=== PATIENT | male | born 1990 | race Caucasian/White ===

== ENCOUNTER 2022-07-26 07:25 | Inpatient (IN) | payer SELFPAY ==
[2022-07-26] VITALS (23 sets, daily range): BP systolic 119–149; BP diastolic 55–90; PULSE 74–143; RESP 15–20; TEMP 36.1–37.4; O2SAT 96–99; BMI 31.4; BMI 31.8
[2022-07-26 08:20] LABS: MANUAL DIFF FLAG NO
[2022-07-26 08:23] LABS: Basophils Absolute Auto 0.1 X10*3/uL (0.0-0.2); Basophils Percent Auto 0.9 % (0-2); Eosinophils Absolute Auto 0.1 X10*3/uL (0.0-0.4); Eosinophils Percent Auto 0.9 % (0-4); Hematocrit 32.9 % (42.0-52.0); Hemoglobin 11.1 g/dl (14.0-18.0); Imm Gran Abs Auto 0.06 X10*3/uL (0.00-0.03); Imm Gran Pct Auto 0.6 % (0.0-0.4); Lymphocytes Absolute Auto 1.3 X10*3/uL (1.2-4.9); Lymphocytes Percent Auto 13.1 % (20-40); Mean Corpuscular HGB Conc 33.7 g/dl (31.0-36.0); Mean Corpuscular Volume 100.9 fL (80.0-98.0); Monocytes Absolute Auto 0.9 X10*3/uL (0.1-1.2); Monocytes Percent Auto 8.9 % (2-11); Neutrophils Absolute Auto 7.5 x10*3/uL (2.0-8.3); Neutrophils Percent Auto 75.6 % (45-73); Platelet Count 191 X10*3/uL (160-400); Red Blood Count 3.26 X10*6/uL (4.60-5.80); Red Cell Distribution Width 14.5 % (11.0-16.0); White Blood Count 9.9 X10*3/uL (4.8-10.8)
--- NOTE | 2022-07-26 08:35 | ECG_ITS ---
Test Reason : TACHY CARDIA Blood Pressure : / mmHG Vent. Rate : 108 BPM Atrial Rate : 108 BPM P-R Int : 152 ms QRS Dur : 066 ms QT Int : 352 ms P-R-T Axes : 000 141 156 degrees QTc Int : 471 ms Sinus tachycardia Right axis deviation Low voltage QRS Nonspecific ST and T wave abnormality Abnormal ECG When compared with ECG of 26-JUL-2022 07:51, Nonspecific T wave abnormality, worse in Inferior leads Referred By: Luis Butt Electronically Signed By:KEKE BELL MD
[2022-07-26 08:36] LABS: Alanine Aminotransferase 48 U/L (0-40); Albumin Level 3.5 g/dL (3.5-5.0); Alkaline Phosphatase 81 U/L (39-117); Anion Gap 18 (12-20); Aspartate Amino Transferase 100 U/L (5-37); Bilirubin Total 3.6 mg/dL (0.0-1.0); Blood Urea Nitrogen 16 mg/dL (9-16); Calcium 9.1 mg/dL (8.4-10.2); Carbon Dioxide 23 mmol/L (22-29); Chloride 101 mmol/L (96-108); Creatinine Clr Calc Pharmacy 157.9; Estimated Glomerular Filt Rate > 60; Ethanol < 10 mg/dL; Glucose Random 100 mg/dL (60-115); Lipase 42 U/L (8-78); Potassium 3.7 mmol/L (3.3-5.1); Sodium 138 mmol/L (135-145); Total Protein 6.6 g/dL (6.5-8.0)
[2022-07-26 08:41] LABS: COVID-19 Test Negative (Negative); IDNOW Serial# 55D5AD1C
--- NOTE | 2022-07-26 08:47 | ED.NAVMDI ---
HPI - Nausea/Vomiting/Diarrhea General Chief complaint: Nausea/Vomiting/Diarrhea Stated complaint: Vomiting/Blood in diarrhea Time Seen by Provider: 07/26/22 08:34 Source: patient and family (Spouse) Mode of arrival: ambulatory Limitations: no limitations History of Present Illness HPI Narrative: 31-year-old male came in for evaluation of nausea and vomiting with bloody diarrhea. 31-year-old male history of alcohol abuse on a daily basis last drink was 2 days ago patient do not feel withdrawing or had history of withdrawal symptoms in the past. Patient noticed he has been passing significant amount of bloody diarrhea since this morning, patient also been feeling nauseous and vomiting blood. Patient decline abdominal pain, no CP, no SOB, not feeling dizzy. Patient declined history of taking anticoagulation or any other medical history. Related Data Home Medications Medication Instructions Recorded Confirmed No Known Home Meds 07/26/22 07/26/22 Allergies Allergy/AdvReac Type Severity Reaction Status Date / Time amoxicillin [AMOXICILLIN] Allergy Unknown HIVES Unverified 07/04/20 15:55 Review of Systems Review of Systems: All other systems are reviewed and are negative Constitutional: Reports as per HPI and Reports no additional constitutional complaints Eyes: Reports as per HPI and Reports no additional eye complaints Reports system reviewed and no additional complaints, except as documented Cardiovascular: Reports as per HPI and Reports no additional cardiovascular complaints Respiratory: Reports as per HPI and Reports no additional respiratory complaints Gastrointestinal: Reports as per HPI and Reports no additional gastrointestinal complaints Genitourinary: Reports no additional female genitourinary complaints Musculoskeletal: Reports no additional musculoskeletal complaints Skin/Breast: Reports system reviewed and no additional complaints, except as docu Psychiatric: Reports no additional psychiatric complaints Endocrine: Reports no additional endocrine complaints Hematologic/Lymphatic: Reports no additional hematologic/lymphatic complaints Allergic/Immunologic: Reports no additional allergic/immunologic complaints Reports system reviewed and no additional complaints, except as documented and Reports Abnormal speech present [facility] Social History Social History (Updated 07/26/22 @ 16:12 by Annabella Leggett MD) Alcohol intake: current Alcohol intake frequency: 0-2 drinks per day Alcohol type: hard liquor Patient Tobacco Use Status: Never used Tobacco Smoked in Last 30 Days: No Substance Use Type: Marijuana Substance Use Frequency: Daily Advance Directives: No Advance Directives Information Provided: Yes Physical Exam Vital Signs: Vital Signs: Last Vital Signs Temp 98.9 F 07/26/22 13:21 Pulse 115 H 07/26/22 13:21 Resp 20 07/26/22 13:21 BP 124/67 07/26/22 13:21 Pulse Ox 96 07/26/22 13:21 O2 Del Method 07/26/22 13:21 BMI result Body Mass Index 31.4 Vital signs have been reviewed as appeared to be correct. Blood pressure normal. Heart rate elevated. Respiration rate normal. Temperature normal. Oxygen saturation normal. Appearance: Alert. Oriented X3. No acute distress. Head: Normal external exam. Normocephalic. Atraumatic. No Gallegos signs noted. No raccoon eyes noted Eyes: PERRLA. EOMI. Conjunctiva and sclera normal. Eyelids normal. ENT: TM's Normal. Pharynx normal. Uvula midline. Moist mucous membranes. No trismus noted. No drooling noted. No muffled voice noted. Neck: Normal inspection. Neck supple. FROM. No adenopathy. Thyroid Normal. No meningeal signs. No neck mass noted. CVS: Normal heart rate and rhythm. Heart sound normal. No murmurs noted. Pulses normal throughout. Respiratory: No respiratory distress. Painless inspiration. Breath sounds normal. No wheezes/rales/rhonchi noted. Chest nontender. No accessory muscle usage noted or decreased air movement noted. Abdomen: Soft and nontender. Bowel sounds normal in all 4 quadrants. No distention noted. No organomegaly noted. No visible injury noted. Rectal exam: Hematochezia, no visible external hemorrhoid, no palpable internal hemorrhoids. Back: No CVA tenderness. Full range of motion noted. Skin: Skin warm and dry. Normal skin color. Normal skin turgor. No rashes/lesions/lacerations noted. Extremities: No lower extremity edema. Extremities exhibit normal range of motion. Extremities nontender. Neuro: Oriented X 3. Cranial nerve exam: II-XII are grossly intact No motor deficit. No sensory deficit. Reflexes normal. Course Course Course Narrative: 31-year-old male history of alcohol abuse presented with hematochezia and upper GI bleed, patient currently not vomiting, had a couple bloody bowel movement while in the emergency department. Patient was tachycardic which improved with fluid now, serial CBC showing hematocrit to decrease from 33 to 28 which could be also contributed to hemodilution. Admit and continue with hemodynamic support and monitoring. Consult to Dr. Howard. Patient is a chronic alcohol abuser showing coagulopathy start the patient on vitamin K. Type and screen if needed for emergency transfusion. Dr. Carson was consulted on the case patient is hemodynamically stable at this point Patient is a daily alcohol abuser CIWA score is 3 no need for treatment at the moment. Reevaluation(s) Reevaluation #1: Dr. Shelley at the bedside decided to take the patient for emergent upper endoscopy, patient still normotensive but tachycardic, to IV access was established, vitamin K for coagulopathy. Time: 16:18 MDM - Nausea/Vomiting/Diarrhea Medical Records Attestation: I reviewed the patient's medical records. Lab Data Attestation: I reviewed the patient's lab results. Result diagrams: 07/26/22 14:36 07/26/22 08:15 Labs: Lab Results 07/26/22 07/26/22 07/26/22 Range/Units 08:15 08:15 08:15 WBC 9.9 (4.8-10.8) X10*3/uL RBC 3.26 L (4.60-5.80) X10*6/uL Hgb 11.1 L (14.0-18.0) g/dl Hct 32.9 L (42.0-52.0) % MCV 100.9 H (80.0-98.0) fL MCH 34.0 H (27.0-33.0) pg MCHC 33.7 (31.0-36.0) g/dl RDW 14.5 (11.0-16.0) % Plt Count 191 (160-400) X10*3/uL MPV 10.0 (9.4-12.4) fL Immature Gran % (Auto) 0.6 H (0.0-0.4) % Neut % (Auto) 75.6 H (45-73) % Lymph % (Auto) 13.1 L (20-40) % Frio % (Auto) 8.9 (2-11) % Eos % (Auto) 0.9 (0-4) % Baso % (Auto) 0.9 (0-2) % Lymph # (Auto) 1.3 (1.2-4.9) X10*3/uL Frio # (Auto) 0.9 (0.1-1.2) X10*3/uL Eos # (Auto) 0.1 (0.0-0.4) X10*3/uL Baso # (Auto) 0.1 (0.0-0.2) X10*3/uL Abs Immat Gran (auto) 0.06 H (0.00-0.03) X10*3/uL Absolute Neuts (auto) 7.5 (2.0-8.3) x10*3/uL Absolute Nucleated RBC 0.000 (0.0-0.012) X10*3/uL Nucleated RBC % (auto) 0.0 (0.0-0.2) /100WBC Sodium 138 (135-145) mmol/L Potassium 3.7 (3.3-5.1) mmol/L Chloride 101 (96-108) mmol/L Carbon Dioxide 23 (22-29) mmol/L Anion Gap 18 (12-20) BUN 16 (9-16) mg/dL Creatinine 0.67 (0.5-1.4) mg/dL Estim Creat Clear Calc 157.9 Estimated GFR > 60 Random Glucose 100 (60-115) mg/dL Calcium 9.1 (8.4-10.2) mg/dL Total Bilirubin 3.6 H (0.0-1.0) mg/dL Direct Bilirubin 2.0 H (0.0-0.5) mg/dL AST 100 H (5-37) U/L ALT 48 H (0-40) U/L Alkaline Phosphatase 81 (39-117) U/L Total Protein 6.6 (6.5-8.0) g/dL Albumin 3.5 (3.5-5.0) g/dL Lipase 42 (8-78) U/L Stool Occult Blood (NEGATIVE) Ethyl Alcohol < 10 mg/dL COVID-19 (GARRETT) Negative (Negative) COVID-19 Clin Com See Note Blood Type Antibody Screen Crossmatch 07/26/22 07/26/22 07/26/22 Range/Units 08:44 08:56 10:06 WBC 10.4 12.2 H (4.8-10.8) X10*3/uL RBC 3.10 L 2.76 L (4.60-5.80) X10*6/uL Hgb 10.7 L 9.4 L (14.0-18.0) g/dl Hct 31.7 L 27.8 L (42.0-52.0) % MCV 102.3 H 100.7 H (80.0-98.0) fL MCH 34.5 H 34.1 H (27.0-33.0) pg MCHC 33.8 33.8 (31.0-36.0) g/dl RDW 14.4 14.5 (11.0-16.0) % Plt Count 183 181 (160-400) X10*3/uL MPV 10.2 9.9 (9.4-12.4) fL Immature Gran % (Auto) 0.7 H (0.0-0.4) % Neut % (Auto) 83.7 H (45-73) % Lymph % (Auto) 6.2 L (20-40) % Frio % (Auto) 8.5 (2-11) % Eos % (Auto) 0.2 (0-4) % Baso % (Auto) 0.7 (0-2) % Lymph # (Auto) 0.8 L (1.2-4.9) X10*3/uL Frio # (Auto) 1.0 (0.1-1.2) X10*3/uL Eos # (Auto) 0.0 (0.0-0.4) X10*3/uL Baso # (Auto) 0.1 (0.0-0.2) X10*3/uL Abs Immat Gran (auto) 0.08 H (0.00-0.03) X10*3/uL Absolute Neuts (auto) 10.2 H (2.0-8.3) x10*3/uL Absolute Nucleated RBC 0.000 0.000 (0.0-0.012) X10*3/uL Nucleated RBC % (auto) 0.0 0.0 (0.0-0.2) /100WBC Sodium (135-145) mmol/L Potassium (3.3-5.1) mmol/L Chloride (96-108) mmol/L Carbon Dioxide (22-29) mmol/L Anion Gap (12-20) BUN (9-16) mg/dL Creatinine (0.5-1.4) mg/dL Estim Creat Clear Calc Estimated GFR Random Glucose (60-115) mg/dL Calcium (8.4-10.2) mg/dL Total Bilirubin (0.0-1.0) mg/dL Direct Bilirubin (0.0-0.5) mg/dL AST (5-37) U/L ALT (0-40) U/L Alkaline Phosphatase (39-117) U/L Total Protein (6.5-8.0) g/dL Albumin (3.5-5.0) g/dL Lipase (8-78) U/L Stool Occult Blood POSITIVE (NEGATIVE) Ethyl Alcohol mg/dL COVID-19 ([facility]RETT) (Negative) COVID-19 Clin Com Blood Type Antibody Screen Crossmatch 07/26/22 Range/Units 10:06 WBC (4.8-10.8) X10*3/uL RBC (4.60-5.80) X10*6/uL Hgb (14.0-18.0) g/dl Hct (42.0-52.0) % MCV (80.0-98.0) fL MCH (27.0-33.0) pg MCHC (31.0-36.0) g/dl RDW (11.0-16.0) % Plt Count (160-400) X10*3/uL MPV (9.4-12.4) fL Immature Gran % (Auto) (0.0-0.4) % Neut % (Auto) (45-73) % Lymph % (Auto) (20-40) % Frio % (Auto) (2-11) % Eos % (Auto) (0-4) % Baso % (Auto) (0-2) % Lymph # (Auto) (1.2-4.9) X10*3/uL Frio # (Auto) (0.1-1.2) X10*3/uL Eos # (Auto) (0.0-0.4) X10*3/uL Baso # (Auto) (0.0-0.2) X10*3/uL Abs Immat Gran (auto) (0.00-0.03) X10*3/uL Absolute Neuts (auto) (2.0-8.3) x10*3/uL Absolute Nucleated RBC (0.0-0.012) X10*3/uL Nucleated RBC % (auto) (0.0-0.2) /100WBC Sodium (135-145) mmol/L Potassium (3.3-5.1) mmol/L Chloride (96-108) mmol/L Carbon Dioxide (22-29) mmol/L Anion Gap (12-20) BUN (9-16) mg/dL Creatinine (0.5-1.4) mg/dL Estim Creat Clear Calc Estimated GFR Random Glucose (60-115) mg/dL Calcium (8.4-10.2) mg/dL Total Bilirubin (0.0-1.0) mg/dL Direct Bilirubin (0.0-0.5) mg/dL AST (5-37) U/L ALT (0-40) U/L Alkaline Phosphatase (39-117) U/L Total Protein (6.5-8.0) g/dL Albumin (3.5-5.0) g/dL Lipase (8-78) U/L Stool Occult Blood (NEGATIVE) Ethyl Alcohol mg/dL COVID-19 ([facility]RETT) (Negative) COVID-19 Clin Com Blood Type O Negative Antibody Screen NEGATIVE Crossmatch See Detail Imaging Data CT abdomen pelvis: Attestation: I personally reviewed and interpreted this imaging study as follows: Radiologist's impression: 1. Mild circumferential wall thickening and adjacent stranding at the proximal portion of the duodenum, which could represent acute duodenitis. No pneumatosis, evidence of perforation, or abscess formation. Sigmoid diverticulosis without evidence of acute diverticulitis. No small or large bowel obstruction. ? 2. Partially distended gallbladder with circumferential wall thickening. No associated inflammatory change or radiopaque gallstone. No intrahepatic or extrahepatic biliary ductal dilatation. ? 3. Hepatic steatosis. No parenchymal lesion.? ? Critical Care Time Critical Care Time Critical Care Time: Yes Total Critical Care Time: 60 Attestation: I spent 60 minutes providing critical care service to the patient, this including time spent at the bedside to evaluate the patient, reassess the patient, monitoring vital signs, review labs, and radiographic studies, counseling the patient/family, discussing the case with consultants, disposition the patient. Discharge Plan Discharge Clinical Impression: Acute GI bleeding, Hematochezia, Alcohol abuse Patient Disposition: Admitted As Inpatient
[2022-07-26 08:54] LABS: OBS Int Ctl Valid YES; OBS1 POSITIVE (NEGATIVE)
[2022-07-26 09:06] LABS: Hematocrit 31.7 % (42.0-52.0); Hemoglobin 10.7 g/dl (14.0-18.0); Mean Corpuscular HGB Conc 33.8 g/dl (31.0-36.0); Mean Corpuscular Hemoglobin 34.5 pg (27.0-33.0); Mean Corpuscular Volume 102.3 fL (80.0-98.0); Mean Platelet Volume 10.2 fL (9.4-12.4); Platelet Count 183 X10*3/uL (160-400); Red Cell Distribution Width 14.4 % (11.0-16.0); White Blood Count 10.4 X10*3/uL (4.8-10.8)
[2022-07-26] MEDS: ondansetron HCL 4 MG/2 ML VIAL IVPUSH ×3 (09:19→19:50)
[2022-07-26] MEDS: Pantoprazole Sodium 40 MG/10 ML VIAL IVPUSH (09:19)
[2022-07-26] MEDS: 0.9 % Sodium Chloride 1,000 ML 999 ML IV ×2 (09:19→11:12)
[2022-07-26 10:11] LABS: MANUAL DIFF FLAG NO
[2022-07-26 10:12] LABS: Basophils Absolute Auto 0.1 X10*3/uL (0.0-0.2); Basophils Percent Auto 0.7 % (0-2); Eosinophils Percent Auto 0.2 % (0-4); Hematocrit 27.8 % (42.0-52.0); Hemoglobin 9.4 g/dl (14.0-18.0); Imm Gran Abs Auto 0.08 X10*3/uL (0.00-0.03); Imm Gran Pct Auto 0.7 % (0.0-0.4); Lymphocytes Absolute Auto 0.8 X10*3/uL (1.2-4.9); Lymphocytes Percent Auto 6.2 % (20-40); Mean Corpuscular HGB Conc 33.8 g/dl (31.0-36.0); Mean Corpuscular Hemoglobin 34.1 pg (27.0-33.0); Mean Corpuscular Volume 100.7 fL (80.0-98.0); Mean Platelet Volume 9.9 fL (9.4-12.4); Monocytes Percent Auto 8.5 % (2-11); Neutrophils Absolute Auto 10.2 x10*3/uL (2.0-8.3); Neutrophils Percent Auto 83.7 % (45-73); Platelet Count 181 X10*3/uL (160-400); Red Blood Count 2.76 X10*6/uL (4.60-5.80); Red Cell Distribution Width 14.5 % (11.0-16.0); White Blood Count 12.2 X10*3/uL (4.8-10.8)
--- NOTE | 2022-07-26 11:41 | PHA.MEDREC ---
Pharmacy Consult ? Medication Reconciliation Pharmacy has completed the medication reconciliation.
--- NOTE | 2022-07-26 13:47 | PM.IMHP ---
History of Present Illness Date of Service: 07/26/22 Attending physician on admission: Annabella Leggett Chief Complaint: upper Gib 31 year old male with history of alcohol abuse who came to the hospital-because started to having nausea and vomiting with bloody diarrhea- as per patient and symptoms is from 1-2 days duration: 1st he had nausea and vomited at least 5-6 time-initially was coffee-ground than also had tha blood also, last vomiting episode was in the ED this morning but it was more coffee-ground as per the patient. He said all this nausea vomiting and diarrhea started after he ate the blue cheese sandwich, but his also took the same she did not have any symptoms. In addition patient has 6-7 bowel movements initially was blackish than tha blood and last 1 he was saying with was looking tarry. He felt light lightheaded, weak, pale, and this tachycardic. Patient says that he is still feeling like he is going to have a bowel movement again waiting for staff to help. alcohol use: He said he was drinking aggressively past year but this series since June he try to cut down but still drink is drinks whiskey 4-6 oz every other day. Uses marijuana no recreational drugs denies use of nsaid ,ocassional use tylenol for headaches. Lab and imaging reviewed: H&H initially in the morning was 11.7 -10.7-9.4- last h/h 8.4,platelets 158 inr 1.9.elevated bilirubin and lft. CT/CT abdomen pelvis wo IV con IMPRESSION: 1. Mild circumferential wall thickening and adjacent stranding at the proximal portion of the duodenum, which could represent acute duodenitis. No pneumatosis, evidence of perforation, or abscess formation. Sigmoid diverticulosis without evidence of acute diverticulitis. No small or large bowel obstruction. In ED:received ns ? 2 liters ,also received ppi/antiemetics-seems still weak , tachycardic still/nauseated, also has epigastric discomfort. Denies any new complaint of chest pain or shortness of breath or fever or chills or cough or weakness or numbness. Review of Systems Review of Systems: as above. [facility] Pertinent family history: grandmother hx of cirrosis Social History (Updated 07/26/22 @ 16:12 by Annabella Leggett MD) Alcohol intake: current Alcohol intake frequency: 0-2 drinks per day Alcohol type: hard liquor Patient Tobacco Use Status: Never used Tobacco Smoked in Last 30 Days: No Substance Use Type: Marijuana Substance Use Frequency: Daily Advance Directives: No Advance Directives Information Provided: Yes Meds Allergies Allergy/AdvReac Type Severity Reaction Status Date / Time amoxicillin [AMOXICILLIN] Allergy Unknown HIVES Unverified 07/04/20 15:55 Active Medications: Current Medications Lactated Ringer's (Lr) 1,000 mls @ 80 mls/hr IVCONT .[id number] ALEXANDR Ondansetron HCl (Ondansetron Hcl 4 Mg/2 Ml Vial) 4 mg IVPUSH Q6H ALEXANDR Pantoprazole Sodium (Pantoprazole Sodium 40 Mg/10 Ml Vial) 40 mg IVPUSH BID@0630,1630 [facility] Pharmacy Consult (Consult Rx Perform Med Rec) 1 each MISCELLANE ONCE PRN PRN Reason: Consult order Home Medications Medication Instructions Recorded Confirmed Last Taken Type No Known Home Meds 07/26/22 07/26/22 Unknown History Physical Exam Vital Signs and Narrative: Vital Signs: Last Vital Signs Temp 98.9 F 07/26/22 13:21 Pulse 115 H 07/26/22 13:21 Resp 20 07/26/22 13:21 BP 124/67 07/26/22 13:21 Pulse Ox 96 07/26/22 13:21 O2 Del Method 07/26/22 13:21 BMI result Body Mass Index 31.4 Appearance: Alert.? Oriented X3.?weak and pale.? Eyes: Pupils equal, round and reactive to light.? Sclera icteric.? ENT: Pharynx normal.? Moist mucous membranes. cvs: rrr(tachycardic),, [id number] . res: clear to auscultation ,no rhonchii or wheezing abd: no rebound or guarding ,epigastric pain, bs present. ext pulses present , no cyanosis. neuro: axo3 , nonfocal. Results Labs CBC and Chem 7: 07/26/22 14:36 07/26/22 08:15 Labs: Laboratory Results - last 24 hr 07/26/22 07/26/22 07/26/22 08:15 08:15 08:15 MCV 100.9 H MCH 34.0 H MCHC 33.7 RDW 14.5 Plt Count 191 MPV 10.0 Immature Gran % (Auto) 0.6 H Neut % (Auto) 75.6 H Lymph % (Auto) 13.1 L [place] % (Auto) 8.9 Eos % (Auto) 0.9 Baso % (Auto) 0.9 Lymph # (Auto) 1.3 [place] # (Auto) 0.9 Eos # (Auto) 0.1 Baso # (Auto) 0.1 Abs Immat Gran (auto) 0.06 H Absolute Neuts (auto) 7.5 Absolute Nucleated RBC 0.000 Nucleated RBC % (auto) 0.0 Anion Gap 18 Estim Creat Clear Calc 157.9 Estimated GFR > 60 Random Glucose 100 Calcium 9.1 Total Bilirubin 3.6 H Direct Bilirubin 2.0 H AST 100 H ALT 48 H Alkaline Phosphatase 81 Total Protein 6.6 Albumin 3.5 Lipase 42 Stool Occult Blood Ethyl Alcohol < 10 COVID-19 ([facility]RETT) Negative COVID-19 Clin Com See Note Blood Type Antibody Screen 07/26/22 07/26/22 07/26/22 08:44 08:56 10:06 MCV 102.3 H 100.7 H MCH 34.5 H 34.1 H MCHC 33.8 33.8 RDW 14.4 14.5 Plt Count 183 181 MPV 10.2 9.9 Immature Gran % (Auto) 0.7 H Neut % (Auto) 83.7 H Lymph % (Auto) 6.2 L [place] % (Auto) 8.5 Eos % (Auto) 0.2 Baso % (Auto) 0.7 Lymph # (Auto) 0.8 L [place] # (Auto) 1.0 Eos # (Auto) 0.0 Baso # (Auto) 0.1 Abs Immat Gran (auto) 0.08 H Absolute Neuts (auto) 10.2 H Absolute Nucleated RBC 0.000 0.000 Nucleated RBC % (auto) 0.0 0.0 Anion Gap Estim Creat Clear Calc Estimated GFR Random Glucose Calcium Total Bilirubin Direct Bilirubin AST ALT Alkaline Phosphatase Total Protein Albumin Lipase Stool Occult Blood POSITIVE Ethyl Alcohol COVID-19 (GARRETT) COVID-19 Clin Com Blood Type Antibody Screen 07/26/22 10:06 MCV MCH MCHC RDW Plt Count MPV Immature Gran % (Auto) Neut % (Auto) Lymph % (Auto) [place] % (Auto) Eos % (Auto) Baso % (Auto) Lymph # (Auto) [place] # (Auto) Eos # (Auto) Baso # (Auto) Abs Immat Gran (auto) Absolute Neuts (auto) Absolute Nucleated RBC Nucleated RBC % (auto) Anion Gap Estim Creat Clear Calc Estimated GFR Random Glucose Calcium Total Bilirubin Direct Bilirubin AST ALT Alkaline Phosphatase Total Protein Albumin Lipase Stool Occult Blood Ethyl Alcohol COVID-19 (GARRETT) COVID-19 Clin Com Blood Type O Negative Antibody Screen NEGATIVE Imaging Radiologist's Impressions: Impressions Abdomen/Pelvis CT 07/26/22 09:11 IMPRESSION: 1. Mild circumferential wall thickening and adjacent stranding at the proximal portion of the duodenum, which could represent acute duodenitis. No pneumatosis, evidence of perforation, or abscess formation. Sigmoid diverticulosis without evidence of acute diverticulitis. No small or large bowel obstruction. 2. Partially distended gallbladder with circumferential wall thickening. No associated inflammatory change or radiopaque gallstone. No intrahepatic or extrahepatic biliary ductal dilatation. 3. Hepatic steatosis. No parenchymal lesion. Fleischner guidelines were followed. Assessment and Plan (1) Acute GI bleeding: Status: Acute (2) Hematochezia: Status: Acute (3) Alcohol abuse: Status: Acute Plan 31 year old male with history of alcohol abuse who came to the hospital-because started to having vomiting coffee ground/bleed as well as bloody diarrhea. 1. Possible upper GI bleed insetting alcohol abuse, possible liver disease d/d broad: severe gastrits vs pud vs sohail hoskins vs varcies H&H trending down, tachycardic, coagulopathy ct abd:circumferential wall thickening and adjacent stranding at the proximal portion of the duodenum, which could represent acute duodenitis. Added FFP, PRBC, vitamin K, octreotide and PPI drip Vital Q2h, CBC Q 4 hour,moniter on tele d/w GI-possible need urgent EGD 2. alcohol abuse: Thiamine, folic acid, CIWA, addiction consult. 3. Obese: Advised to lose weight. Discussed with ICU in detail length-currently ICU recommended to monitor-and continue above management, GI is aware for need of is EgD. ICU /GI offical consult pending Above management discussed the patient in detail length she understand and in agreement with the above plan, time spent 70 minute, patient full code. In patient need: Patient will benefit from 2 midnight stays considering possible upper GI bleed requiring blood transfusion, IV PPIs and octreotide as well as close monitoring and possible EGD. Quality Stroke Does the patient have a stroke diagnosis?: No VTE Prior VTE?: No VTE Risk Level:: Medical - moderate - high VTE Device Contraindication: N/A - Device Ordered VTE Drug Contraindication: N/A - Med Ordered
[2022-07-26] MEDS: Lactated Ringers 1,000 ML 80 ML IVCONT ×2 (14:09→23:56)
[2022-07-26 14:43] LABS: Hematocrit 24.9 % (42.0-52.0); Hemoglobin 8.5 g/dl (14.0-18.0); Mean Corpuscular HGB Conc 34.1 g/dl (31.0-36.0); Mean Corpuscular Hemoglobin 34.6 pg (27.0-33.0); Mean Corpuscular Volume 101.2 fL (80.0-98.0); Mean Platelet Volume 10.1 fL (9.4-12.4); Platelet Count 158 X10*3/uL (160-400); Red Blood Count 2.46 X10*6/uL (4.60-5.80); Red Cell Distribution Width 14.6 % (11.0-16.0); White Blood Count 10.9 X10*3/uL (4.8-10.8)
[2022-07-26 14:50] LABS: INTERNATIONAL NORM RATIO 1.9 (0.9-1.1); Prothrombin Time 22.6 SEC (10.0-13.1)
--- NOTE | 2022-07-26 15:55 | W.PM.CCCN ---
History of Present Illness Data of Consult Service Date: 07/26/22 Requesting physician: Annabella Leggett Primary Care Provider: None Physician HPI I was asked by Dr. Leggett to see Mr. Machado in the ED bec of UGI bleeding. The patient is a 31-year-old male alcoholic.? He presented ambulatory to the ED this morning complaining of nausea and vomiting with bloody diarrhea.? Last drink was 2 days ago.? Does not feel like he is withdrawing at this time. Since the morning, he has been passing significant amounts of bloody diarrhea, also feeling nauseous and vomited blood.? Denied abdominal pain chest pain shortness of breath and dizziness.? Not taking any anticoagulation or nonsteroidals. Initial vitals in the ED showed heart rate 132, blood pressure 145/90, respiratory rate 20, sat 98% on room air, the patient was afebrile. ?Exam in the ED showed no jaundice and the abdomen was benign.? Reportedly had a couple bloody bowel movements in the ED, and then vomited coffee-grounds. ?The patient to the me that his last bowel movement in the ED was mostly mucus. Labs in the ED as below.? Notably, initial hemoglobin was 11.1, then 10.7, then 9.4, and last was 8.5 (last Hb about six hours after the first draw, and after multiple liters volume resuscitation).? Last platelet count 158. ?PT 22/1.9.? BUN/creatinine 16/0.6, total bili 3.6, AST/ALT 100/48, albumin 3.5. I saw the patient in the ED.? He looked entirely well.? No jaundice.? Heart rate about 110.? Last blood pressure 124/67.? Breathing easy.? Abdomen was benign to my exam. IMPRESSION: 1. Active upper GI bleed.? (Hb drop is confounded by active volume resuscitation).? Needs prompt EGD. 2. Anemia.? At this point, consider transfusion of 1 unit RBCs to stay ahead, in case he has a major bleed). 3. Coagulopathy.? Recommend 10 mg vitamin K q6 hours, for a total of 50 mg.? Also transfuse FFP 2 units. 4. May have cirrhosis (although serum albumin and platelet count are normal). 5. Possibly mildly malnourished. [facility] Social History Social History (Updated 07/26/22 @ 16:12 by Annabella Leggett MD) Alcohol intake: current Alcohol intake frequency: 0-2 drinks per day Alcohol type: hard liquor Patient Tobacco Use Status: Never used Tobacco Smoked in Last 30 Days: No Substance Use Type: Marijuana Substance Use Frequency: Daily Advance Directives: No Advance Directives Information Provided: Yes Meds Allergies Allergy/AdvReac Type Severity Reaction Status Date / Time amoxicillin [AMOXICILLIN] Allergy Unknown HIVES Unverified 07/04/20 15:55 Active Medications: Current Medications Lactated Ringer's (Lr) 1,000 mls @ 80 mls/hr IVCONT .[id number] ALEXANDR Last Admin: 07/26/22 14:09 Dose: 80 mls/hr Phytonadione 10 mg/ Sodium (Chloride) 51 mls @ 51 mls/hr IV ONCE ONE Stop: 07/26/22 16:14 Thiamine HCl 100 mg/ Sodium (Chloride) 101 mls @ 202 mls/hr IV DAILY ALEXANDR Folic Acid 1 mg/ Sodium (Chloride) 50.2 mls @ 100.4 mls/hr IV DAILY ALEXANDR Phytonadione 10 mg/ Sodium (Chloride) 51 mls @ 51 mls/hr IV Q6H ALEXANDR Octreotide Acetate 500 mcg/ (Sodium Chloride) 501 mls @ 50.1 mls/hr IVCONT .Q10H ALEXANDR Pantoprazole Sodium 80 mg/ (Sodium Chloride) 100 mls @ 10 mls/hr IV .Q10H ALEXANDR Ondansetron HCl (Ondansetron Hcl 4 Mg/2 Ml Vial) 4 mg IVPUSH Q6H ALEXANDR Last Admin: 07/26/22 13:53 Dose: 4 mg Pharmacy Consult (Consult Rx Perform Med Rec) 1 each MISCELLANE ONCE PRN PRN Reason: Consult order Home Medications Medication Instructions Recorded Confirmed Last Taken Type No Known Home Meds 07/26/22 07/26/22 Unknown History Physical Exam Vital Signs: Vital Signs: Last Vital Signs Temp 98.9 F 07/26/22 13:21 Pulse 115 H 07/26/22 13:21 Resp 20 07/26/22 13:21 BP 124/67 07/26/22 13:21 Pulse Ox 96 07/26/22 13:21 O2 Del Method 07/26/22 13:21 BMI result Body Mass Index 31.4 Results Labs CBC & Chem 7: 07/26/22 14:36 07/26/22 08:15 Labs: Short CBC 07/26/22 07/26/22 07/26/22 Range/Units 08:15 08:56 10:06 WBC 9.9 10.4 12.2 H (4.8-10.8) X10*3/uL Hgb 11.1 L 10.7 L 9.4 L (14.0-18.0) g/dl Hct 32.9 L 31.7 L 27.8 L (42.0-52.0) % Plt Count 191 183 181 (160-400) X10*3/uL 07/26/22 Range/Units 14:36 WBC 10.9 H (4.8-10.8) X10*3/uL Hgb 8.5 L (14.0-18.0) g/dl Hct 24.9 L (42.0-52.0) % Plt Count 158 L (160-400) X10*3/uL BMP 07/26/22 08:15 Sodium 138 Potassium 3.7 Chloride 101 Carbon Dioxide 23 BUN 16 Creatinine 0.67 Calcium 9.1 Liver Function 07/26/22 Range/Units 08:15 Total Bilirubin 3.6 H (0.0-1.0) mg/dL Direct Bilirubin 2.0 H (0.0-0.5) mg/dL AST 100 H (5-37) U/L ALT 48 H (0-40) U/L Alkaline Phosphatase 81 (39-117) U/L Albumin 3.5 (3.5-5.0) g/dL
[2022-07-26] MEDS: Phytonadione (Vit K1) 10 MG in 0.9 % Sodium Chloride 50 ML 51 MG IV ×2 (16:15→22:29)
--- NOTE | 2022-07-26 16:41 | MHC.SHP ---
Pre-Procedural Eval Section A Date of Service: 07/26/22 The patient is an INPATIENT: Yes The History & Physical has been completed within 30 days and I have reviewed it.: Yes Section B Chief Complaint: possible Gib?upper Allergies: Allergies Allergy/AdvReac Type Severity Reaction Status Date / Time amoxicillin [AMOXICILLIN] Allergy Unknown HIVES Unverified 07/04/20 15:55 Plan I have reviewed the history and physical and performed a pertinent physical examination on my patient. No changes have occurred unless specified.
--- NOTE | 2022-07-26 16:41 | PM.EVENT ---
Event Note Date of Service: 07/26/22 Event Note: GI Consult-Full note dictated Imp: UGI bleed in a 31yo male with hx of EtOH abuse, occasional NSAID use, alcohol-induced hepatitis, coagulopathy, and CT scan suggestive of duodenal ulcer/inflammation. Rec: EGD with MAC/GA today, transfuse FFP and PRBC's, IV Vitamin K, IV PPI, ICU evaluation. Full consent obtained for the endoscopy, including risks of bleeding and perforation. Thanks.
[2022-07-26] MEDS: Octreotide Acetate 500 MCG in 0.9 % Sodium Chloride 500 ML 50.1 MCG IVCONT (16:44)
[2022-07-26 16:51] LABS: Magnesium 1.3 mg/dL (1.6-2.6)
[2022-07-26] MEDS: Folic Acid 1 MG in 0.9 % Sodium Chloride 50 ML 100.4 MG IV (16:51)
[2022-07-26] MEDS: Pantoprazole Sodium 80 MG in 0.9 % Sodium Chloride 80 ML 10 MG IV (17:39)
--- NOTE | 2022-07-26 17:46 | HO.ANESPROP2 ---
HPI - Anesthesia Eval Consult details Narrative: GI bleed PMFSH Active Problems Active Problems: All Active Problems (Updated 07/26/22 @ 11:11 by Luis Butt MD) Acute GI bleeding (Acute) Hematochezia (Acute) Alcohol abuse (Acute) Family History Family history of problems with anesthesia: No Surgical History History of Problems with Anesthesia: No Social History Social History (Updated 07/26/22 @ 16:12 by Annabella Leggett MD) Alcohol intake: current Alcohol intake frequency: 0-2 drinks per day Alcohol type: hard liquor Patient Tobacco Use Status: Never used Tobacco Smoked in Last 30 Days: No Substance Use Type: Marijuana Substance Use Frequency: Daily Advance Directives: No Advance Directives Information Provided: Yes Meds Allergies Allergy/AdvReac Type Severity Reaction Status Date / Time amoxicillin [AMOXICILLIN] Allergy Unknown HIVES Unverified 07/04/20 15:55 Active Medications: Current Medications Lactated Ringer's (Lr) 1,000 mls @ 80 mls/hr IVCONT .[id number] ALEXANDR Last Infusion: 07/26/22 17:17 Dose: 0 mls/hr Thiamine HCl 100 mg/ Sodium (Chloride) 101 mls @ 202 mls/hr IV DAILY ALEXANDR Folic Acid 1 mg/ Sodium (Chloride) 50.2 mls @ 100.4 mls/hr IV DAILY ALEXANDR Last Infusion: 07/26/22 17:38 Dose: Infused Phytonadione 10 mg/ Sodium (Chloride) 51 mls @ 51 mls/hr IV Q6H ALEXANDR Octreotide Acetate 500 mcg/ (Sodium Chloride) 501 mls @ 50.1 mls/hr IVCONT .Q10H ALEXANDR Last Admin: 07/26/22 16:44 Dose: 50 mcg/hr, 50.1 mls/hr Pantoprazole Sodium 80 mg/ (Sodium Chloride) 100 mls @ 10 mls/hr IV .Q10H ALEXANDR Last Admin: 07/26/22 17:39 Dose: 8 mg/hr, 10 mls/hr Magnesium Sulfate/Dextrose (Magnesium Sulfate/D5w) 1 gm in 100 mls @ 100 mls/hr IV ONCE ONE Stop: 07/26/22 18:42 Ondansetron HCl (Ondansetron Hcl 4 Mg/2 Ml Vial) 4 mg IVPUSH Q6H ALEXANDR Last Admin: 07/26/22 13:53 Dose: 4 mg Pharmacy Consult (Consult Rx Perform Med Rec) 1 each MISCELLANE ONCE PRN PRN Reason: Consult order Home Medications Medication Instructions Recorded Confirmed Last Taken Type No Known Home Meds 07/26/22 07/26/22 Unknown History Exam Exam Date and Time: July 26, 2022 174 Height,Weight and Vital Signs: Height 5 ft 5 in Weight 85.729 kg Last Vital Signs Temp 99.1 F 07/26/22 17:36 Pulse 128 H 07/26/22 17:36 Resp 17 07/26/22 17:36 BP 130/60 07/26/22 17:36 Pulse Ox 96 07/26/22 13:21 O2 Del Method 07/26/22 13:21 Pertinent Lab Results Pertinent Lab Results: Laboratory Tests 07/26/22 07/26/22 07/26/22 08:15 08:15 08:15 WBC 9.9 RBC 3.26 L Hgb 11.1 L Hct 32.9 L MCV 100.9 H MCH 34.0 H MCHC 33.7 RDW 14.5 Plt Count 191 MPV 10.0 Immature Gran % (Auto) 0.6 H Neut % (Auto) 75.6 H Lymph % (Auto) 13.1 L [place] % (Auto) 8.9 Eos % (Auto) 0.9 Baso % (Auto) 0.9 Lymph # (Auto) 1.3 [place] # (Auto) 0.9 Eos # (Auto) 0.1 Baso # (Auto) 0.1 Abs Immat Gran (auto) 0.06 H Absolute Neuts (auto) 7.5 Absolute Nucleated RBC 0.000 Nucleated RBC % (auto) 0.0 PT INR Sodium 138 Potassium 3.7 Chloride 101 Carbon Dioxide 23 Anion Gap 18 BUN 16 Creatinine 0.67 Estim Creat Clear Calc 157.9 Estimated GFR > 60 Random Glucose 100 Calcium 9.1 Magnesium 1.3 L* Total Bilirubin 3.6 H Direct Bilirubin 2.0 H AST 100 H ALT 48 H Alkaline Phosphatase 81 Total Protein 6.6 Albumin 3.5 Lipase 42 Stool Occult Blood Ethyl Alcohol < 10 COVID-19 (GARRETT) Negative COVID-19 Clin Com See Note Blood Type Antibody Screen Crossmatch 07/26/22 07/26/22 07/26/22 08:44 08:56 10:06 WBC 10.4 12.2 H RBC 3.10 L 2.76 L Hgb 10.7 L 9.4 L Hct 31.7 L 27.8 L MCV 102.3 H 100.7 H MCH 34.5 H 34.1 H MCHC 33.8 33.8 RDW 14.4 14.5 Plt Count 183 181 MPV 10.2 9.9 Immature Gran % (Auto) 0.7 H Neut % (Auto) 83.7 H Lymph % (Auto) 6.2 L [place] % (Auto) 8.5 Eos % (Auto) 0.2 Baso % (Auto) 0.7 Lymph # (Auto) 0.8 L [place] # (Auto) 1.0 Eos # (Auto) 0.0 Baso # (Auto) 0.1 Abs Immat Gran (auto) 0.08 H Absolute Neuts (auto) 10.2 H Absolute Nucleated RBC 0.000 0.000 Nucleated RBC % (auto) 0.0 0.0 PT INR Sodium Potassium Chloride Carbon Dioxide Anion Gap BUN Creatinine Estim Creat Clear Calc Estimated GFR Random Glucose Calcium Magnesium Total Bilirubin Direct Bilirubin AST ALT Alkaline Phosphatase Total Protein Albumin Lipase Stool Occult Blood POSITIVE Ethyl Alcohol COVID-19 (GARRETT) COVID-[place]alar Com Blood Type Antibody Screen Crossmatch 07/26/22 07/26/22 07/26/22 10:06 14:36 14:36 WBC 10.9 H RBC 2.46 L Hgb 8.5 L Hct 24.9 L MCV 101.2 H MCH 34.6 H MCHC 34.1 RDW 14.6 Plt Count 158 L MPV 10.1 Immature Gran % (Auto) Neut % (Auto) Lymph % (Auto) [place] % (Auto) Eos % (Auto) Baso % (Auto) Lymph # (Auto) [place] # (Auto) Eos # (Auto) Baso # (Auto) Abs Immat Gran (auto) Absolute Neuts (auto) Absolute Nucleated RBC 0.000 Nucleated RBC % (auto) 0.0 PT 22.6 H INR 1.9 H Sodium Potassium Chloride Carbon Dioxide Anion Gap BUN Creatinine Estim Creat Clear Calc Estimated GFR Random Glucose Calcium Magnesium Total Bilirubin Direct Bilirubin AST ALT Alkaline Phosphatase Total Protein Albumin Lipase Stool Occult Blood Ethyl Alcohol COVID-19 (GARRETT) COVID-Apsalar Com Blood Type O Negative Antibody Screen NEGATIVE Crossmatch See Detail Airway Mallampati Class: II TM Dist: >3cm Neck ROM: Full Heart: RRR Lungs: CTA Assessment and Plan Assessment Anesthesia Assessment: Anesthesia Plan Discussed and Chart Reviewed Final Anesthetic Review Family History of Problems with Anesthesia: No History of Problems with Anesthesia: No NPO: No ASA Class: IV and Emergency Final Preanesthetic Review: No Changes in Pt Med Stat, Meds/Allgs Chart Reviewed, Consent Obtained/Reviewed and Anes Risks/Benef Reviewed Patient Risk: High Procedure Risk: Low Anesthetic Plan Anesthetic Plan: GA Disposition: Standard PACU
[2022-07-26 17:49] LABS: Hematocrit 24.9 % (42.0-52.0); Hemoglobin 8.5 g/dl (14.0-18.0); Mean Corpuscular HGB Conc 34.1 g/dl (31.0-36.0); Mean Corpuscular Hemoglobin 34.3 pg (27.0-33.0); Mean Corpuscular Volume 100.4 fL (80.0-98.0); Mean Platelet Volume 11.1 fL (9.4-12.4); PLT CLUMP 1; Red Blood Count 2.48 X10*6/uL (4.60-5.80); Red Cell Distribution Width 14.6 % (11.0-16.0)
[2022-07-26 17:54] LABS: White Blood Count 9.4 X10*3/uL (4.8-10.8)
[2022-07-26 19:28] LABS: Platelet Count 129 X10*3/uL (160-400)
--- NOTE | 2022-07-26 19:31 | PM.EVENT ---
Event Note Date of Service: 07/26/22 Event Note: GI-EGD-Full note dictated Findings: 1. Approximately 1cm Duodenal bulb ulcer along anterior wall with surrounding edema and spasm, but no visible vessel nor active bleeding. 2. Given the clinical history of recent bleeding, I did inject a total of 6cc of 1:10,000 Epi at the margins of the ulcer with good blanching of mucosa and then applied multiple sprays of the Hemospray into the duodenal ulcer with good application noted. 3. 2 gastric antral biopsies obtained to inspect for H.pylori. 4. Small hiatal hernia 5. No varices nor portal gastropathy. Rec: Observe on IV PPI infusion for 72 hours, NPO for now, F/U CBC/PT/LFT's for the AM. D/W patient's . Thanks
--- NOTE | 2022-07-26 19:40 | PM.OP ---
Brief Operative Note Date of Service: 07/26/22 Pre-op diagnosis: UGI Bleed Post-op diagnosis: other (Duodenal ulcer) Procedure: EGD with Sclerotherapy with 1:10,000 Epi and Hemospray Surgeon: Salvador Howard Anesthesia: GETA Was an Fur Ironer used for this Procedure?: No Estimated blood loss (mL): 5.0 Pathology: other (A. Gastric antrum) Condition: stable Disposition: PACU
--- NOTE | 2022-07-26 19:50 | PC.NURSE ---
BLOOD COMPLTED AT 0767
--- NOTE | 2022-07-26 19:51 | PC.NURSE ---
ZOFRAN GIVEN FOR NAUSEA
--- NOTE | 2022-07-26 19:55 | PC.NURSE ---
OCTREOTIDE D/C BY DR KIM
--- NOTE | 2022-07-26 20:23 | PC.NURSE ---
PLASMA COMPLTED 2018 RIP SANTOS CLEAR
[2022-07-26 21:51] LABS: Hematocrit 22.3 % (42.0-52.0); Mean Corpuscular HGB Conc 35.9 g/dl (31.0-36.0); Mean Corpuscular Hemoglobin 34.8 pg (27.0-33.0); Mean Platelet Volume 11.2 fL (9.4-12.4); PLT CLUMP 1; Red Cell Distribution Width 15.9 % (11.0-16.0)
[2022-07-26 21:55] LABS: White Blood Count 6.8 X10*3/uL (4.8-10.8)
[2022-07-26 22:52] LABS: Platelet Count 90 X10*3/uL (160-400)
[2022-07-26] MEDS: Magnesium Sulfate/D5W 1 GM/100 ML PIGGYBACK IV (23:41)
[2022-07-27] VITALS (14 sets, daily range): BP systolic 113–141; BP diastolic 55–79; PULSE 72–112; RESP 14–18; TEMP 36.2–37.2; O2SAT 97–99
[2022-07-27] MEDS: Thiamine HCL 100 MG in 0.9 % Sodium Chloride 100 ML 202 MG IV ×2 (00:59→09:09)
[2022-07-27 01:08] LABS: Hemoglobin 7.2 g/dl (14.0-18.0); Mean Corpuscular HGB Conc 34.3 g/dl (31.0-36.0); Mean Corpuscular Hemoglobin 33.8 pg (27.0-33.0); Mean Corpuscular Volume 98.6 fL (80.0-98.0); Mean Platelet Volume 10.1 fL (9.4-12.4); Red Blood Count 2.13 X10*6/uL (4.60-5.80); Red Cell Distribution Width 16.1 % (11.0-16.0); White Blood Count 5.4 X10*3/uL (4.8-10.8)
[2022-07-27 01:10] LABS: Platelet Count 81 X10*3/uL (160-400)
--- NOTE | 2022-07-27 01:14 | CONS_ITS ---
DATE OF SERVICE: 07/26/2022 REASON FOR CONSULTATION: Upper GI bleeding. HISTORY OF PRESENT ILLNESS: The patient is a 31-year-old male with a history of alcohol abuse who comes in with the description of hematemesis and hematochezia. This began at 4 a.m. this morning, which awakened him from sleep. He denies any previous history of ulcer disease nor GI bleeding. The patient does report heavier drinking earlier this year, but most recently has only been having 1 to 2 drinks per day by his description. He does use occasional NSAIDs but not on a daily basis. He does smoke marijuana at least once a day but does not use any tobacco. Since arrival in the ER, he did have 1 more episode of hematemesis, but then has been having primarily hematochezia. He denies any melena. He denies any abdominal pain. He has been tachycardic in the ER, but otherwise hemodynamically stable. He presently denies abdominal pain. His hemoglobin on admission to the ER was 11.1 and this has drifted down to 8.5 as of 2:30 this afternoon. He denies any known family history of ulcer disease nor GI malignancy. MEDICATIONS: Occasional NSAIDs at home. PAST MEDICAL HISTORY: Appendectomy. Alcohol abuse. He denies any history of heart disease, diabetes, lung disease, nor kidney disease. He denies any other surgeries. SOCIAL HISTORY: He runs a kitchen in a restaurant. He is with 1 son. Alcohol as above. FAMILY HISTORY: Noncontributory. REVIEW OF SYSTEMS: CONSTITUTIONAL: Up until today, he was feeling well. SKIN: Without rash. No pruritus. CARDIAC: No chest pain. PULMONARY: No cough, no hemoptysis. GI: As above. He denies any chronic heartburn, dysphagia, anorexia, nor early satiety. His bowel movements have been regular and normal in color up until today. PHYSICAL EXAMINATION: GENERAL: The patient is alert, pleasant, cooperative male. SKIN: Warm and dry. Nonjaundiced. No obvious spider angiomata. NECK: Supple. CHEST: Clear. CARDIAC: Normal S1, S2. ABDOMEN: Soft, nondistended, nontender. EXTREMITIES: Without edema. LABORATORY DATA: As above. White blood cell count of 10.9 platelets 158,000 PT 22.6 with INR 1.9. Normal electrolytes. BUN 16, creatinine 0.7. Total bilirubin 3.6, direct bilirubin 2.0, AST 100, ALT 48, alkaline phosphatase 81, albumin 3.5, lipase 42. Stool was Hemoccult positive. Alcohol level was nondetectable. COVID was negative. He did have a CT scan of the abdomen and pelvis describing some inflammatory changes involving the proximal duodenum in a circumferential manner with some wall thickening and mild fat stranding. There is no evidence of any free air, nor abscess. There is no obvious liver disease nor varices. There is no splenomegaly, nor ascites. IMPRESSION: Given the patient's clinical history, this seems consistent with an upper GI bleed probably related to peptic ulcer disease involving the duodenum. At this point, he will undergo an urgent upper endoscopy with either monitored anesthesia care or general anesthesia. This will be done today. In the meantime, he is going to get FFP, vitamin K, packed red blood cells, and IV pantoprazole. Based on the history, I do not think this is a variceal bleed. Full consent has been obtained from him for the upper endoscopy, including risks of bleeding and perforation. He may need ICU admission afterwards. Of note, it also appears that he has a component of alcohol-induced hepatitis. This will need to be followed with follow up labs, including PT/INR and LFTs. This has been discussed in detail with the patient, and he is comfortable with this plan. Thank you for the consultation. MD ROBERTO Holland/AHSAN / [id number] MTDD
--- NOTE | 2022-07-27 02:20 | OP_ITS ---
SURGEON: Salvador Howard MD INDICATIONS: The patient presents for evaluation of upper GI bleeding. Full consent has been obtained from him for this, including risks of bleeding and perforation. PREOPERATIVE DIAGNOSIS: Upper GI bleeding. POSTOPERATIVE DIAGNOSIS: PROCEDURE PERFORMED: Esophagogastroduodenoscopy with sclerotherapy with epinephrine 1:10,000, and application of Hemospray. Biopsies taken. ESTIMATED BLOOD LOSS: COMPLICATIONS: ANESTHESIA: General anesthesia, glucagon 1 mg IV x 2 doses, and 6 cc of epinephrine in a dilution of 1:10,000. ASSISTANTS: SPECIMENS: POSTOPERATIVE DIAGNOSES: Upper GI bleeding, duodenal ulcer, small hiatal hernia. DESCRIPTION OF PROCEDURE: The patient was placed in the supine position. The Olympus video gastroscope was passed in the posterior oropharynx and upper esophagus under direct vision. The scope was passed slowly into the distal esophagus. The gastroesophageal junction appeared at 38 cm. There was no sign of any varices, esophagitis, nor Mcgee's esophagus. The scope entered into the stomach. There was a small hiatal hernia. There was no blood or coffee-grounds material in the stomach. The scope was advanced into the pylorus. The duodenum was cannulated into the 2nd and 3rd portions. The 2nd and 3rd portions of the duodenum appeared normal without any sign of bleeding. There was no old blood. In the very distal portion of the duodenal bulb, almost at the junction of the bulb and 2nd portion along the anterior wall,, was an area of edema and spasm. After administration of glucagon and insufflation of air, I was able to visualize an ulcer crater approximately 1 cm in diameter with a clean base. There still remained some spasm and difficulty seeing the entire ulcer, but I did not visualize any sign of visible vessel, and there was no bleeding. Given the clinical history of recent significant bleeding, I did apply 6 cc of epinephrine around the margins of the ulcer with good blanching of mucosa. I then put several applications of the Hemospray into the ulcer crater itself with good application. The duodenal bulb otherwise appeared normal. There was no active bleeding. The scope was withdrawn back in the stomach. The gastric antrum and body appeared normal with good peristalsis. The scope was retroflexed visualizing the proximal stomach carefully, which appeared normal, without any sign of ulceration, mass, portal gastropathy, nor varices. The scope was straightened. Two biopsies were obtained from the gastric antrum. The scope was withdrawn back into the esophagus. There was no sign of any esophageal varices. The scope was withdrawn from the patient. He tolerated the procedure well and was returned to the recovery area in stable condition. IMPRESSION: 1. Duodenal ulcer. 2. Rule out Helicobacter pylori. 3. Hiatal hernia. PLAN: The results of the biopsies will be checked. He will continue on his IV pantoprazole infusion and remain n.p.o. He will have followup laboratories tonight and tomorrow morning. If H pylori is present that should be treated at some point. He should obviously avoid alcohol mcc completely. He should avoid all aspirin and NSAIDs long-term as well. This has been discussed with his . MD ROBERTO Holland/AHSAN / [id number] MTDD
[2022-07-27] MEDS: Pantoprazole Sodium 80 MG in 0.9 % Sodium Chloride 80 ML 10 MG IV ×3 (02:49→22:02)
[2022-07-27] MEDS: Phytonadione (Vit K1) 10 MG in 0.9 % Sodium Chloride 50 ML 51 MG IV ×3 (04:49→18:29)
[2022-07-27 06:25] LABS: Alanine Aminotransferase 31 U/L (0-40); Albumin Level 2.6 g/dL (3.5-5.0); Alkaline Phosphatase 53 U/L (39-117); Anion Gap 17 (12-20); Aspartate Amino Transferase 73 U/L (5-37); Bilirubin Direct 0.9 mg/dL (0.0-0.5); Bilirubin Total 2.3 mg/dL (0.0-1.0); Blood Urea Nitrogen 14 mg/dL (9-16); Calcium 7.3 mg/dL (8.4-10.2); Carbon Dioxide 17 mmol/L (22-29); Chloride 111 mmol/L (96-108); Creatinine Clr Calc Pharmacy 154.4; Estimated Glomerular Filt Rate > 60; Glucose Random 92 mg/dL (60-115); Potassium 4.3 mmol/L (3.3-5.1); Sodium 141 mmol/L (135-145)
[2022-07-27] MEDS: Acetaminophen 325 MG TABLET 650 MG PO (07:27)
[2022-07-27] MEDS: ondansetron HCL 4 MG/2 ML VIAL IVPUSH ×2 (07:28→14:45)
[2022-07-27 08:31] LABS: Hematocrit 22.8 % (42.0-52.0); Hemoglobin 7.7 g/dl (14.0-18.0)
[2022-07-27 09:01] LABS: INTERNATIONAL NORM RATIO 1.5 (0.9-1.1); Prothrombin Time 17.6 SEC (10.0-13.1)
[2022-07-27] MEDS: Lactated Ringers 1,000 ML 80 ML IVCONT (12:34)
--- NOTE | 2022-07-27 12:55 | P.PNIM_ITS ---
Subjective Subjective Date of Service: 07/27/22 Interval History: Upper GI bleed Review of Systems denies lightheadedness or chest pain or shortness of breath or dizziness Had 1 small BM which is formed as per patient-melena,no tha blood. no vomiting Physical Exam Vital Signs: Vital Signs: Last Vital Signs Temp 98.5 F 07/27/22 12:00 Pulse 93 07/27/22 12:00 Resp 16 07/27/22 12:00 BP 125/63 07/27/22 12:00 Pulse Ox 98 07/27/22 12:00 O2 Del Method 07/27/22 12:00 BMI result Body Mass Index 31.8 Appearance: Alert.? Oriented X3.?not in distress cvs: rrr, [id number] . res: clear to auscultation ,no rhonchii or wheezing abd: no rebound or guarding ,epigastric pain improving, bs present. ext pulses present , no cyanosis. neuro: axo3 , nonfocal. Objective Data Active Medications Lactated Ringer's (Lr) 1,000 mls @ 80 mls/hr IVCONT .[id number] [facility] Last Admin: 07/27/22 12:34 Dose: 80 mls/hr Documented By: FALLON Thiamine HCl 100 mg/ Sodium (Chloride) 101 mls @ 202 mls/hr IV DAILY [facility] Last Infusion: 07/27/22 09:53 Dose: 202 mls/hr Documented By: IAM Folic Acid 1 mg/ Sodium (Chloride) 50.2 mls @ 100.4 mls/hr IV DAILY [facility] Last Admin: 07/27/22 12:38 Dose: Not Given Documented By: FALLON Non-Admin Reason: Previously Administered Phytonadione 10 mg/ Sodium (Chloride) 51 mls @ 51 mls/hr IV Q6H [facility] Last Infusion: 07/27/22 12:16 Dose: 0 mls/hr Documented By: FALLON Pantoprazole Sodium 80 mg/ (Sodium Chloride) 100 mls @ 10 mls/hr IV .Q10H [facility] Last Admin: 07/27/22 12:37 Dose: 8 mg/hr, 10 mls/hr Documented By: FALLON Ondansetron HCl (Ondansetron Hcl 4 Mg/2 Ml Vial) 4 mg IVPUSH Q6H [facility] Last Admin: 07/27/22 07:28 Dose: 4 mg Documented By: IAM Pharmacy Consult (Consult Rx Perform Med Rec) 1 each MISCELLANE ONCE PRN PRN Reason: Consult order Labs CBC & Chem 7: 07/27/22 08:07 07/27/22 05:41 Labs: Laboratory Results - last 24 hr 07/26/22 07/26/22 07/26/22 08:15 10:06 14:36 MCV MCH MCHC RDW Plt Count MPV Absolute Nucleated RBC Nucleated RBC % (auto) PT 22.6 H INR 1.9 H Anion Gap Estim Creat Clear Calc Estimated GFR Random Glucose Calcium Magnesium 1.3 L* Total Bilirubin Direct Bilirubin AST ALT Alkaline Phosphatase Total Protein Albumin Blood Type O Negative Antibody Screen NEGATIVE Crossmatch See Detail 07/26/22 07/26/22 07/26/22 14:36 17:19 21:18 MCV 101.2 H 100.4 H 97.0 MCH 34.6 H 34.3 H 34.8 H MCHC 34.1 34.1 35.9 RDW 14.6 14.6 15.9 Plt Count 158 L 129 L 90 L D MPV 10.1 11.1 11.2 Absolute Nucleated RBC 0.000 0.000 0.000 Nucleated RBC % (auto) 0.0 0.0 0.0 PT INR Anion Gap Estim Creat Clear Calc Estimated GFR Random Glucose Calcium Magnesium Total Bilirubin Direct Bilirubin AST ALT Alkaline Phosphatase Total Protein Albumin Blood Type Antibody Screen Crossmatch 07/27/22 07/27/22 07/27/22 00:52 05:41 08:07 MCV 98.6 H MCH 33.8 H MCHC 34.3 RDW 16.1 H Plt Count 81 L MPV 10.1 Absolute Nucleated RBC 0.000 Nucleated RBC % (auto) 0.0 PT 17.6 H INR 1.5 H Anion Gap 17 Estim Creat Clear Calc 154.4 Estimated GFR > 60 Random Glucose 92 Calcium 7.3 L D Magnesium Total Bilirubin 2.3 H Direct Bilirubin 0.9 H AST 73 H ALT 31 Alkaline Phosphatase 53 D Total Protein 5.0 L D Albumin 2.6 L D Blood Type Antibody Screen Crossmatch Assessment and Plan (1) Acute blood loss anemia: Status: Acute (2) Acute GI bleeding: Status: Acute (3) Hematochezia: Status: Acute (4) Alcohol abuse: Status: Acute Plan 31 year old male with history of alcohol abuse who came to the hospital-because started to having vomiting coffee ground/bleed as well as bloody diarrhea. 1. acute blood loss anemia sec to Possible upper GI bleed insetting alcohol abuse, possible liver disease egd -duodenal ulcer ( please see egd report for detaile info) H&H trending down, coagulopathy ct abd:circumferential wall thickening and adjacent stranding at the proximal portion of the duodenum, which could represent acute duodenitis. s/p prbc /ffp , continue , octreotide and PPI drip, vitamin k added 2 prbc due to low h/h Vital Q2h, CBC Q 4 hour,moniter on tele Gi gollow up 2. alcohol abuse: Thiamine, folic acid, CIWA, addiction consult. 3. Obese:? Advised to lose weight. dvt prophylax : mech devices due to Gib/anemia. inpatient need : acute blood loss anemia sec to Possible upper GI bleed insetting alcohol abuse, possible liver disease-need transfusions,ffp,iv ppi,octerotode. Quality Stroke Does the patient have a stroke diagnosis?: No VTE Prior VTE?: No VTE Risk Level:: Medical - moderate - high VTE Device Contraindication: N/A - Device Ordered VTE Drug Contraindication: N/A - Med Ordered
--- NOTE | 2022-07-27 13:26 | MHC.CM.PN ---
EMR REVIWED, PT ADMITTED W/POSSIBLE UPPPER GI BLEED, CM MET W/PT WHO REPORTS HE LIVES W/ AND 5YO SON, PT IS INDEP/NO SERVICES AND NO DME. PT REPORTS HE DOES NOT HAVE A PCP HE HAS NOT HAD INSURANCE SINCE [facility], PT REPORTS HE PREVIOUSLY DID NOT QUALIFY HOWEVER THAT WAS A WHILE AGO AND WOULD LIKE TO RETRY, REFERRAL SENT TO [facility], PT ALSO COMPLETED A HCP NAMING HIS [place] (#ON FILE) AND DECLINED TO CHOSE AN ALTERNATE. PT PROVIDED W/EDUCATION, ORIGINAL AND 2 COPIES, AT BEDSIDE AND WILL BRING HCP HOME. COPY UPLOADED TO [facility] AND PLACED IN CHART. D/C PLAN: HOME NO SERVICES W/ FOR TRANSPORT
--- NOTE | 2022-07-27 19:42 | PM.EVENT ---
Event Note Date of Service: 07/27/22 Event Note: GI-Course noted and D/W Dr. Leggett and the patient's RN. There has been no vomiting and only 1 small black stool today. He has been hemodynamically stable. Hgb is low, but has been stable. LFT's and PT/INR are improved. Patient has been stable. I recommended to continue the IV PPI infusion, follow labs, and start clear liquids. Call me if problems. Thanks
[2022-07-27 21:04] LABS: Hematocrit 28.1 % (42.0-52.0); Hemoglobin 9.7 g/dl (14.0-18.0); Mean Corpuscular HGB Conc 34.5 g/dl (31.0-36.0); Mean Corpuscular Volume 95.6 fL (80.0-98.0); Mean Platelet Volume 10.2 fL (9.4-12.4); PLT CLUMP 1; Red Blood Count 2.94 X10*6/uL (4.60-5.80); Red Cell Distribution Width 17.4 % (11.0-16.0)
[2022-07-27 21:26] LABS: White Blood Count 5.4 X10*3/uL (4.8-10.8)
[2022-07-27 22:36] LABS: Platelet Count 83 X10*3/uL (160-400)
[2022-07-28 00:28] LABS: Magnesium 1.8 mg/dL (1.6-2.6)
[2022-07-28 03:23] VITALS: BP 107/52; PULSE 53; RESP 18; TEMP 36.7; O2SAT 100
[2022-07-28] MEDS: Lactated Ringers 1,000 ML 80 ML IVCONT (05:43)
[2022-07-28] MEDS: Thiamine HCL 100 MG in 0.9 % Sodium Chloride 100 ML 202 MG IV (06:22)
[2022-07-28 06:32] LABS: Hematocrit 27.3 % (42.0-52.0); Hemoglobin 9.3 g/dl (14.0-18.0); Mean Corpuscular HGB Conc 34.1 g/dl (31.0-36.0); Mean Corpuscular Hemoglobin 32.7 pg (27.0-33.0); Mean Corpuscular Volume 96.1 fL (80.0-98.0); Mean Platelet Volume 9.8 fL (9.4-12.4); Red Blood Count 2.84 X10*6/uL (4.60-5.80); Red Cell Distribution Width 17.7 % (11.0-16.0); White Blood Count 3.8 X10*3/uL (4.8-10.8)
[2022-07-28 06:34] LABS: Platelet Count 84 X10*3/uL (160-400)
[2022-07-28 06:40] LABS: INTERNATIONAL NORM RATIO 1.5 (0.9-1.1); Prothrombin Time 17.5 SEC (10.0-13.1)
[2022-07-28 07:02] LABS: Alanine Aminotransferase 35 U/L (0-40); Albumin Level 2.8 g/dL (3.5-5.0); Alkaline Phosphatase 61 U/L (39-117); Anion Gap 13 (12-20); Aspartate Amino Transferase 91 U/L (5-37); Bilirubin Direct 1.7 mg/dL (0.0-0.5); Blood Urea Nitrogen 12 mg/dL (9-16); Calcium 7.7 mg/dL (8.4-10.2); Carbon Dioxide 22 mmol/L (22-29); Chloride 107 mmol/L (96-108); Creatinine Clr Calc Pharmacy 161.4; Estimated Glomerular Filt Rate > 60; Glucose Random 76 mg/dL (60-115); Potassium 3.8 mmol/L (3.3-5.1); Sodium 138 mmol/L (135-145)
[2022-07-28 07:31] VITALS: BP 134/69; PULSE 73; RESP 20; TEMP 37.2; O2SAT 98
--- NOTE | 2022-07-28 09:24 | MHC.CM.PN ---
pt to be dcd home no skilled servceis indicated
[2022-07-28] MEDS: Folic Acid 1 MG in 0.9 % Sodium Chloride 50 ML 100.4 MG IV (09:42)
[2022-07-28] MEDS: Pantoprazole Sodium 80 MG in 0.9 % Sodium Chloride 80 ML 10 MG IV (09:42)
--- NOTE | 2022-07-28 10:31 | PM.DS ---
DS: Providers Provider Date of Service: 07/28/22 Date of admission: 07/26/22 13:41 Primary care physician: None Physician Consults: 07/26/22 11:06 Consult to Gastroenterology Stat Consulting Provider: Salvador Howard Reason for consultation: GI bleed Has provider been notified: Yes 07/26/22 15:57 Consult to Critical Care Routine Consulting Provider: Mehrdad Carson Reason for consultation: acute upper Gi bleed Has provider been notified: No DS: Diagnosis Discharge Diagnosis (1) Acute blood loss anemia: Status: Resolved (2) Acute GI bleeding: Status: Resolved (3) Hematochezia: Status: Resolved (4) Alcohol abuse: Status: Inactive (5) Duodenal ulcer: Status: Acute DS: Summary Hospital Course Hospital Course: Admission note HPI 31 year old male with history of alcohol abuse who came to the hospital-because started to having nausea and vomiting with bloody diarrhea- as per patient and symptoms is from 1-2 days duration:? 1st he had nausea and vomited at least 5-6 time-initially was coffee-ground than also had tha blood also, last vomiting episode was in the ED this morning but it was more coffee-ground as per the patient. He said all this nausea vomiting and diarrhea started after he ate the blue cheese sandwich, but his also took the same she did not have any symptoms. In addition patient has 6-7 bowel movements initially was blackish than tha blood and last 1 he was saying with was looking tarry. He felt light lightheaded, weak, pale, and this tachycardic.? Patient says that he is still feeling like he is going to have a bowel movement again waiting for staff to help. He said he was drinking aggressively past year but this series since June he try to cut down but still drink is drinks whiskey 4-6 oz every other day. Uses marijuana no recreational drugs denies use of nsaid ,ocassional use? tylenol for headaches. Hospital course The patient was admitted to the hospital for acute blood loss anemia secondary to upper GI bleeding in setting of alcohol abuse and transaminitis. The patient was noted to have a drop in hemoglobin from around 10 admission to below 8 requiring blood transfusion of total of 3 units along with fresh frozen plasma as he was started on octreotide, pantoprazole drip and received vitamin K for elevated INR. All believed to be secondary to chronic alcoholism. Urgent endoscopy was done as the patient was monitored in the ICU unit for repeated coffee-ground vomitus. Endoscopy showed an evidence of distal duodenal ulcer with clear base and no active bleeding or visible arteries treated locally with epinephrine and placement of several applications of hemo spray. Followed by Dr. Howard through the hospital stay as biopsy result still pending to rule out possible Helicobacter pylori infection. Diet was advanced slowly with good tolerance as the patient tolerated regular diet that the day of discharge. Started on supplement of folic acid, thiamine with addition of ferrous sulfate at time of discharge. Advised complete abstinence from alcohol which she agrees with. Start folic acid, thiamine and iron supplement Start omeprazole 40 mg twice daily for duodenal ulcer To follow-up with PCP for biopsy result of Helicobacter pylori infection We strongly advise you complete abstinence from alcohol Avoid NSAID and aspirin To repeat blood work next week Time Spent with Patient Time attestation: Total time spent providing and/or coordinating discharge services: Discharge coordination time: Greater than 30 minutes Quality: Safe Use of Opioids Does Pt have an Active Cancer Diagnosis on the Problem List?: No Quality: Stroke Does the patient have a stroke diagnosis?: No Physical Exam Vital Signs: Vital Signs: Last Vital Signs Temp 99.0 F 07/28/22 07:31 Pulse 73 07/28/22 07:31 Resp 20 07/28/22 07:31 BP 134/69 07/28/22 07:31 Pulse Ox 98 07/28/22 07:31 O2 Del Method 07/28/22 07:31 BMI result Body Mass Index 31.8 Const: Other: Constitutional : Alert, oriented, not in distress Neck : Normal inspection, Supple Cardiovascular : RRR, no JVP, no lower extremity edema Respiratory : fair bilateral air entry, no crackles, wheezes or rhonchi Gastrointestinal: soft, lax, Normal bowel sounds, Non tender Skin : Warm, Dry Neurological : Alert & oriented x3, No focal deficit DS: Data Data Completed and Pending Pending studies at discharge: Pending at discharge 07/26/22 19:12 Surgical [PTH] Routine Labs on day of discharge: Laboratory Results - last 24 hr 07/26/22 07/27/22 07/27/22 10:06 20:40 23:55 WBC 5.4 RBC 2.94 L D Hgb 9.7 L D Hct 28.1 L D MCV 95.6 MCH 33.0 MCHC 34.5 RDW 17.4 H Plt Count 83 L MPV 10.2 Absolute Nucleated RBC 0.000 Nucleated RBC % (auto) 0.0 PT INR Sodium Potassium Chloride Carbon Dioxide Anion Gap BUN Creatinine Estim Creat Clear Calc Estimated GFR Random Glucose Calcium Magnesium 1.8 Total Bilirubin Direct Bilirubin AST ALT Alkaline Phosphatase Total Protein Albumin Blood Type O Negative Antibody Screen NEGATIVE Crossmatch See Detail 07/28/22 07/28/22 07/28/22 06:09 06:09 06:09 WBC 3.8 L RBC 2.84 L Hgb 9.3 L Hct 27.3 L MCV 96.1 MCH 32.7 MCHC 34.1 RDW 17.7 H Plt Count 84 L MPV 9.8 Absolute Nucleated RBC 0.000 Nucleated RBC % (auto) 0.0 PT 17.5 H INR 1.5 H Sodium 138 Potassium 3.8 Chloride 107 Carbon Dioxide 22 Anion Gap 13 BUN 12 Creatinine 0.66 Estim Creat Clear Calc 161.4 Estimated GFR > 60 Random Glucose 76 Calcium 7.7 L Magnesium Total Bilirubin 3.0 H Direct Bilirubin 1.7 H AST 91 H ALT 35 Alkaline Phosphatase 61 Total Protein 5.0 L Albumin 2.8 L Blood Type Antibody Screen Crossmatch Imaging CT scan - abdomen: Radiologist's impression: ITS Impressions Abdomen/Pelvis CT 07/26/22 09:11 IMPRESSION: 1. Mild circumferential wall thickening and adjacent stranding at the proximal portion of the duodenum, which could represent acute duodenitis. No pneumatosis, evidence of perforation, or abscess formation. Sigmoid diverticulosis without evidence of acute diverticulitis. No small or large bowel obstruction. 2. Partially distended gallbladder with circumferential wall thickening. No associated inflammatory change or radiopaque gallstone. No intrahepatic or extrahepatic biliary ductal dilatation. 3. Hepatic steatosis. No parenchymal lesion. Fleischner guidelines were followed. Discharge Plan Discharge Anticipated Discharge Date/Time: 07/28/22 10:15 Patient Disposition: Home, Self-Care Discharge Diagnosis: Acute blood loss anemia Duodenal ulcer Alcohol abuse Referrals: Physician,None [Primary Care Provider] - 1 Week Discharge Medications: New folic acid 1 mg tablet 1 mg PO DAILY Qty: 30 0RF thiamine HCl (vitamin B1) 100 mg tablet 100 mg PO DAILY Qty: 30 0RF ferrous sulfate 324 mg (65 mg iron) tablet,delayed release (DR/EC) 324 mg PO DAILY Qty: 30 0RF omeprazole 40 mg capsule,delayed release(DR/EC) 40 mg PO BID Qty: 60 2RF Discharge Orders: Discharge Order (Routine); Ordered 07/28/22 Ordered By: Laurie Richey Diet: Advance to usual diet Activity on Discharge: As tolerated Stand Alone Forms: Patient Portal Discharge page Other Ambulatory Orders: Complete Blood Count no Diff (Routine) Timeframe: 1 Week Facility: [facility] - Location: [address] [place] [address]-Lab Ordered By: Laurie Richey Care Plan Goals: Read below Health Concerns: Read below Plan of Treatment: Read below Assessment: You were admitted to the hospital for evaluation of coffee-ground vomitus. Had an urgent endoscopy showing an evidence of duodenal ulcer with no active bleeding treated with IV Protonix with transfusion of blood and plasma. No recurrent bleeding as your blood level remains stable. Monitor for any symptoms of alcohol withdrawal and started on supplement. Start folic acid, thiamine and iron supplement Start omeprazole 40 mg twice daily for duodenal ulcer To follow-up with PCP for biopsy result of Helicobacter pylori infection We strongly advise you complete abstinence from alcohol Avoid NSAID and aspirin To repeat blood work next week Discharge Date/Time: 07/28/22 15:51
[2022-07-28 11:11] VITALS: BP 131/70; PULSE 96; RESP 18; TEMP 37.3; O2SAT 98
--- NOTE | 2022-07-28 11:20 | HO.POSTANES ---
Post Anesthesia Evaluation Post Anesthesia Evaluation Vital Signs: Vital Signs Temp Pulse Resp BP Pulse Ox O2 Del Method 07/28/22 11:11 99.2 F 96 18 131/70 98 Room Air 07/28/22 07:31 99.0 F 73 20 134/69 98 Room Air 07/28/22 03:23 98.0 F 53 18 107/52 L 100 Room Air Anesthesia: General Mental Status: Awake Pain Control: Satisfactory Nausea/Vomiting: None Hydration: Adequate Anesthesia-Related Issues: No Anes. Related Issues
--- NOTE | 2022-07-28 11:23 | MHC.CM.PN ---
pt dcd home no skilled services orered by
== END 2022-07-28 15:51 | disposition home or self-care (01) | DRG 378 ==
LOC: HO.ED 11:11 → HO.S3 16:25 → HO.EDOVER 18:15 → HO.S3 07-27 13:17 → HO.IMC 07-27 13:17
PROVIDERS: Emergency Medicine; Internal Medicine; Student in an Organized Health Care Education/Training Program; Admitting Provider Internal Medicine; Emergency Provider Emergency Medicine Emergency Medical Services; Visit Provider Student in an Organized Health Care Education/Training Program
PROC: 0DB78ZX Excision of Stomach, Pylorus, Via Natural or Artificial Opening Endoscopic, Diagnostic (ICD-10-PCS; principal; 2022-07-26 18:00)
DX: K26.4 Chronic or unspecified duodenal ulcer with hemorrhage (principal); D62 Acute posthemorrhagic anemia; E44.1 Mild protein-calorie malnutrition; D68.4 Acquired coagulation factor deficiency; K70.10 Alcoholic hepatitis without ascites; F10.10 Alcohol abuse, uncomplicated; E66.9 Obesity, unspecified; Z20.822 Contact with and (suspected) exposure to COVID-19; Z68.31 Body mass index [BMI] 31.0-31.9, adult; Z88.0 Allergy status to penicillin
CPT/HCPCS: 36415; 74176; 80048; 80076; 82077; 82272; 83690; 83735; 85014; 85018; 85025; 85027; 85610; 86850; 86900; 86901; 86923; 87635; 88305; 88342; 93005; 99285; J0330; J1610; J2354; J2405; J2550; J3010; J3411; J3430; J3475; P9016; P9017